=== PATIENT | female | born 1950 | race Caucasian/White ===

== ENCOUNTER 2023-01-03 18:16 | Emergency (ER) | payer MEDICARE, SELFPAY ==
[2023-01-03 18:17] VITALS: BP 180/87; PULSE 101; RESP 18; TEMP 35.6; O2SAT 96
[2023-01-03 19:48] VITALS: BMI 32.9
--- NOTE | 2023-01-03 19:51 | EDS_ITS ---
HPI <RENEA Coates - Last Filed: 01/03/23 21:15> History of Present Illness Chief Complaint: Bite Narrative Narrative: Patient presenting today due to concerns for an infection in her right fourth finger after being bit on accident by her dog 2 days ago. She reports that the finger has become swollen and erythemic. She reports that she has 2 dogs who were fighting and she was trying to break up the fight but got her finger bit in the process. She is unsure of her last tetanus update. Dogs are up-to-date on vaccines. She denies any fever or chills. PFSH <RENEA Coates - Last Filed: 01/03/23 21:15> [facility] Medical History Anxiety Atherosclerotic heart disease of [place] coronary artery without angina pectoris Cardiac murmur Essential hypertension Former smoker GERD (gastroesophageal reflux disease) History of DVT (deep vein thrombosis) History of right above knee amputation Hypertension medical management Mitral valve regurgitation, rheumatic Mixed hyperlipidemia ANIYA (obstructive sleep apnea) Osteoporosis Presence of stent in coronary artery (~08/02/11) Rheumatic aortic regurgitation Rheumatic fever Spinal stenosis Type 2 diabetes mellitus Valvular heart disease Home Medications bupropion HCl 150 mg tablet,12 hr sustained-release 150 mg PO BID 05/14/14 [History Last Taken Unknown] paroxetine HCl 40 mg tablet (Paxil) 50 mg PO DAILY 05/14/14 [History Last Taken Unknown] aspirin 81 mg chewable tablet 81 mg PO DAILY@0800 10/07/15 [History Last Taken Unknown] pantoprazole 20 mg tablet,delayed release 20 mg PO DAILY #30 TABLETS 10/20/15 [Rx Last Taken Unknown] paroxetine HCl 10 mg tablet 10 mg PO DAILY 04/05/21 [History Last Taken Unknown] nitroglycerin 0.4 mg sublingual tablet 0.4 mg sublingual Q5-15M PRN Cardiac/Chest Pain #25 tabs 04/06/21 [Rx Last Taken Unknown] hydrochlorothiazide 12.5 mg tablet 12.5 mg PO DAILY #1 TAB 12/08/21 [Rx Last Taken Unknown] losartan 50 mg tablet 50 mg PO DAILY 12/08/21 [History Last Taken Unknown] amoxicillin 875 mg-potassium clavulanate 125 mg tablet 1 tab PO BID 10 days #19 tabs 01/03/23 [Rx Last Taken Unknown] oxycodone-acetaminophen 5 mg-325 mg tablet (Percocet) 1 tab PO Q8H PRN pain 3 days #10 tabs 01/03/23 [Rx Last Taken Unknown] Allergy/AdvReac Type Severity Reaction Status Date / Time duloxetine HCl Allergy Unknown Verified 01/03/23 18:16 [From Cymbalta] simvastatin [From Zocor] Allergy Unknown Verified 01/03/23 18:16 Yclrugr-[id number]-MbY Reductase Allergy Unknown Verified 01/03/23 18:16 Inhibitor [Qmpaezx-Aky-Ses Reductase Inhibitor] meperidine HCl [From Demerol] AdvReac Unknown Verified 01/03/23 18:16 Family History Father Cancer Brother CAD (coronary artery disease) Brother CAD (coronary artery disease) Diabetes Surgical History H/O hysterectomy with oophorectomy History of bilateral knee replacement History of coronary artery stent placement History of foot surgery History of tonsillectomy and adenoidectomy Presence of coronary angioplasty implant and graft S/P above knee amputation (~01/26/16) Social History Smoking Status: Former smoker alcohol intake: current details: RAre substance use type: does not use caffeine: Yes Type: coffee Number of servings: 2 ROS <RENEA Coates - Last Filed: 01/03/23 21:15> ROS ED Constitutional Constitutional ED: Denies chills or fever(s) Cardiovascular Cardiovascular: Denies chest pain Respiratory/Chest Respiratory/Chest: Denies cough, dyspnea or wheezing Gastrointestinal Gastrointestinal: Denies abdominal pain, nausea or vomiting Musculoskeletal Musculoskeletal: Reports arthralgias; Denies myalgias Integumentary Denies abscess, Abrasions or rash Neurologic Neurologic: Denies weakness EXAM <RENEA Coates - Last Filed: 01/03/23 21:15> Physical Exam Const Vital Signs: 01/03/23 18:17 Temperature 96.0 F L Temperature Source Temporal Pulse Rate 101 H Respiratory Rate 18 Blood Pressure 180/87 H Blood Pressure Mean 118 Pulse Ox 96 Oxygen Delivery Method Room Air Positive well nourished, well developed and no apparent distress General Appearance ED: well developed HEENT Reports normocephalic and head/scalp atraumatic Mouth ED: Yes moist mucous membranes normal Eyes PERRL and EOMs intact bilaterally Neck full ROM and supple Chest Wall inspection of chest normal Resp normal respiratory effort and clear to auscultation bilaterally Cardio regular rate and regular rhythm GI soft to palpation, non-tender, non-distended and no masses Back/Spine normal ROM and normal to inspection Extremity normal to inspection and full ROM Extremity Narrative: Right fourth finger erythema, edema to the PIP with a scabbed puncture wound to the dorsal aspect of the PIP and ventral aspect. Radial pulses 2+ and equal bilaterally, good capillary refill, sensation intact Neuro oriented x3, CN's II-XII intact bilaterally, moves all extremities, no focal motor deficits and no sensory deficits noted Sensorium / Orientation: awake and alert Psych mental status grossly normal and thought process normal Skin no rashes or lesions noted and no wounds <Dr. Pankaj Biggs MD - Last Filed: 01/03/23 21:43> Physical Exam Const Vital Signs: 01/03/23 18:17 Temperature 96.0 F L Temperature Source Temporal Pulse Rate 101 H Respiratory Rate 18 Blood Pressure 180/87 H Blood Pressure Mean 118 Pulse Ox 96 Oxygen Delivery Method Room Air <Dr. Pankaj Biggs MD - Last Filed: 01/03/23 21:43> Procedures Other Procedures Procedure(s): I&D infected dog bite finger as documented by me under the MDM portion of the chart. [facility] <RENEA Coates - Last Filed: 01/03/23 21:15> [facility] Narrative Medical decision making narrative: Patient presenting after being bit by her dog 2 days ago to the right fourth finger. It is erythematous and edematous along the length of the finger and ends at the DIP joint. It does appear to be infected with abscess formation to the dorsal aspect of the DIP joint. X-ray obtained to rule out foreign body, fracture, and is negative for acute findings. Digital block was administered, abscess was drained, wick was placed and wound was dressed. Patient was given pain control here, a dose of Augmentin, and tetanus was updated. She has been given a prescription for Augmentin and Percocet for pain. She has been given strict instructions to follow-up with her PCP in 2 days, if she cannot follow-up with them she is to return. If she notices any worsening of her symptoms such as increased redness into her hand she is to follow-up sooner. She be discharged home in stable condition is comfortable with plan Radiography X-Ray: Read by ED Physician and Read by Radiologist Diagnostic Testing: Clinical Impression(s) from Imaging Studies Hand X-Ray 01/03/23 20:30 IMPRESSION: There is widening of the scapholunate articulation suggesting a sprain of the scapholunate interosseous ligament. Degenerative joint disease of the hand and wrist, as described above. Electronically Signed: Juma Masterson MD at 20:50 EDT , <Dr. Pankaj Biggs MD - Last Filed: 01/03/23 21:43> [facility] MDM Narrative Medical decision making narrative: Patient presenting after being bit by her dog 2 days ago to the right fourth finger. It is erythematous and edematous along the length of the finger and ends at the DIP joint. It does appear to be infected with abscess formation to the dorsal aspect of the DIP joint. X-ray obtained to rule out foreign body, fracture, and is negative for acute findings. Digital block was administered, abscess was drained, wick was placed and wound was dressed. Patient was given pain control here, a dose of Augmentin, and tetanus was updated. She has been given a prescription for Augmentin and Percocet for pain. She has been given strict instructions to follow-up with her PCP in 2 days, if she cannot follow-up with them she is to return. If she notices any worsening of her symptoms such as increased redness into her hand she is to follow-up sooner. She be discharged home in stable condition is comfortable with plan I have personally performed a face to face assessment of the patient and have reviewed the TORITO Note. I performed a substantive portion of the visit including all aspects of the following. My clifford findings include: History is patient was bit by dog 2 days ago. She has a puncture wound on the dorsal surface of the right ring finger distal to the DIP joint and there is a puncture wound noted on the volar surface distal to the DIP joint. Tetanus is not up-to-date. She denies allergy to penicillin. She complains of redness, pain and swelling. She denies history medic fever, heart murmur, SBE and is not immune suppressed. Exam is patient has a swollen digit. There is erythema warmth and fluctuance. There is no lymphangitis. There is no epitrochlear or axillary lymphadenopathy. There is no pain the patient over the flexor tendon in zone 3 of the palm. Sensation is intact. Capillary refill is normal. Patient does not have pain in the joint with passive flexion and extension. Heart is regular. Rate is normal. There is no murmur, gallop or rub. Medical Decision Making patient has infected dog bite. X-ray was obtained to determine if there is any injury to the bone and rule out tooth fragment. Soft tissue swelling is noted. There are degenerative changes noted. Interpretation by radiologist was read however there is no concern for injury to the wrist. Other additions or changes: Patient's digit was anesthetized. Incision was made by me. Purulent material flowed from the incision. Blunt dissection was undertaken. The wound was irrigated with 50 cc of normal saline. A wick was placed using quarter-inch Nu Gauze. Patient received p.o. morphine for her pain. She was discharged with prescription for pain medicine and Augmentin. Radiography Diagnostic Testing: Clinical Impression(s) from Imaging Studies Hand X-Ray 01/03/23 20:30 IMPRESSION: There is widening of the scapholunate articulation suggesting a sprain of the scapholunate interosseous ligament. Degenerative joint disease of the hand and wrist, as described above. Electronically Signed: Juma Masterson MD at 20:50 EDT Reading Location ID and State: [facility] / [place] , Service support , Discharge Plan Triage Chief Complaint: Bite ED Midlevel Provider: Jo Le ED Provider: Pankaj Biggs Dx/Rx/DC Orders Clinical Impression: Infected dog bite of finger, Cellulitis and abscess of finger, unspecified Instructions: Abscess Drainage, ED Dog Bite Prescriptions: New amoxicillin-pot clavulanate 875-125 mg tablet 1 tab PO BID 10 Days Qty: 19 0RF oxycodone-acetaminophen [Percocet] 5-325 mg tablet 1 tab PO Q8H PRN (Reason: pain) 3 Days Qty: 10 0RF No Action nitroglycerin 0.4 mg tablet, sublingual 0.4 mg sublingual Q5-15M PRN (Reason: Cardiac/Chest Pain) Qty: 25 1RF paroxetine HCl 10 mg tablet 10 mg PO DAILY bupropion HCl 150 MG tablet sustained-release 12 hr 150 mg PO BID Label Comments: treat depression paroxetine HCl [Paxil] 40 MG tablet 50 mg PO DAILY Label Comments: Treat major depressive disorders aspirin 81 MG tablet,chewable 81 mg PO DAILY@0800 Label Comments: Heart health pantoprazole 20 MG tablet 20 mg PO DAILY Qty: 30 0RF Label Comments: treat high stomach acid hydrochlorothiazide 12.5 mg tablet 12.5 mg PO DAILY Qty: 1 0RF losartan 50 mg tablet 50 mg PO DAILY Primary Care Provider: Ciro Gomez Referrals: Ciro Gomez DO [Primary Care Provider] - 2 Days Activity Restrictions/Additional Instructions: Please follow-up with your PCP in 2 days, if you cannot follow-up with them please return to the emergency department. If you notice any worsening of symptoms, please follow-up sooner. Disposition Disposition: Home, Self Care
[2023-01-03] MEDS: Diphth,Pertuss(Acell),Tet Vac 0.5 ML Vial IM (20:21)
[2023-01-03] MEDS: Lidocaine 1% (20 ml mdv) 20 ML Vial 10 ML INFILT (20:22)
--- NOTE | 2023-01-03 20:30 | RAD_ITS ---
STUDY: XR Hand Min 3 Views REASON FOR EXAM: Female, 72 years old. dog bite TECHNIQUE: XR Hand 4 Views RIGHT COMPARISON: None. FINDINGS: Normal radiocarpal articulation. There is degenerative arthrosis of the distal radioulnar joint. Normal visualized carpal bones. There is widening of the scapholunate articulation suggesting a sprain of the scapholunate interosseous ligament. There is degenerative arthrosis of the carpometacarpal (CMC) articulation of the thumb. Normal second through fifth carpometacarpal joints. Normal metacarpi. Normal metacarpophalangeal joint of the thumb. Normal interphalangeal joint of the thumb. Normal proximal and distal phalanges of the thumb. There is degenerative arthrosis of the metacarpophalangeal (MCP) joints of the 2nd and 3rd digit. There is diffuse articular joint space narrowing of the proximal and distal interphalangeal joints of the second through fifth fingers, but without erosive changes or periarticular soft tissue swelling. Normal phalanges of the second through fifth fingers. The soft tissue structures are unremarkable. RAD/Hand Min 3 Views IMPRESSION: There is widening of the scapholunate articulation suggesting a sprain of the scapholunate interosseous ligament. Degenerative joint disease of the hand and wrist, as described above. Electronically Signed: Juma Masterson MD at 20:50 EDT Reading Location ID and State: [facility] / [place] , Service support ,
[2023-01-03] MEDS: Acetaminophen 325 MG Tablet 650 MG PO (21:54)
[2023-01-03] MEDS: oxyCODONE 5 MG Tablet PO (21:54)
[2023-01-03] MEDS: Amox/Clavulanate 875 MG Tablet PO (21:55)
[2023-01-03 22:12] VITALS: BP 106/103; PULSE 78; RESP 16; O2SAT 95
== END 2023-01-03 22:22 | disposition home or self-care (01) ==
PROVIDERS: Emergency Provider Emergency Medicine; PCP Student in an Organized Health Care Education/Training Program; Visit Provider Emergency Medicine
DX: L02.511 Cutaneous abscess of right hand (principal); E11.9 Type 2 diabetes mellitus without complications; E78.2 Mixed hyperlipidemia; I25.10 Atherosclerotic heart disease of native coronary artery without angina pectoris; I10 Essential (primary) hypertension; Z87.891 Personal history of nicotine dependence; S61.254D Open bite of right ring finger without damage to nail, subsequent encounter; L03.012 Cellulitis of left finger; W54.0XXD Bitten by dog, subsequent encounter; Z23 Encounter for immunization
CPT/HCPCS: 10060; 73130; 90471; 90715; 99285

== ENCOUNTER 2023-01-05 18:24 | Emergency (ER) | payer MEDICARE, SELFPAY ==
[2023-01-05 18:25] VITALS: BP 185/66; PULSE 105; RESP 18; TEMP 36.4; O2SAT 97
[2023-01-05 18:33] VITALS: BMI 30.9
[2023-01-05] MEDS: Bupivacaine Mpf 0.5% 30 ML VIAL INFILT (18:48)
--- NOTE | 2023-01-05 19:12 | EDS_ITS ---
HPI History of Present Illness Chief Complaint: Wound Check Informant: patient Narrative Narrative: Patient presents for a wound check. She was bit by a dog on Saturday of last week. She presented to the ER on with an abscess over the extensor surface of her right fourth finger at the DIP joint. X-ray at that time was unremarkable. She had an I&D of the abscess performed with packing placed in the wound. She was advised to have the wound rechecked in 2 days. She was unable to see her PCP today so presents to the ER. She is on Augmentin as well as on hydrocodone. [facility] Medical History Anxiety Atherosclerotic heart disease of [place] coronary artery without angina pectoris Cardiac murmur Essential hypertension Former smoker GERD (gastroesophageal reflux disease) History of DVT (deep vein thrombosis) History of right above knee amputation Hypertension medical management Mitral valve regurgitation, rheumatic Mixed hyperlipidemia ANIYA (obstructive sleep apnea) Osteoporosis Presence of stent in coronary artery (~08/02/11) Rheumatic aortic regurgitation Rheumatic fever Spinal stenosis Type 2 diabetes mellitus Valvular heart disease Home Medications bupropion HCl 150 mg tablet,12 hr sustained-release 150 mg PO BID 05/14/14 [History Last Taken Unknown] paroxetine HCl 40 mg tablet (Paxil) 50 mg PO DAILY 05/14/14 [History Last Taken Unknown] aspirin 81 mg chewable tablet 81 mg PO DAILY@0800 10/07/15 [History Last Taken Unknown] pantoprazole 20 mg tablet,delayed release 20 mg PO DAILY #30 TABLETS 10/20/15 [Rx Last Taken Unknown] paroxetine HCl 10 mg tablet 10 mg PO DAILY 04/05/21 [History Last Taken Unknown] nitroglycerin 0.4 mg sublingual tablet 0.4 mg sublingual Q5-15M PRN Cardiac/Chest Pain #25 tabs 04/06/21 [Rx Last Taken Unknown] hydrochlorothiazide 12.5 mg tablet 12.5 mg PO DAILY #1 TAB 12/08/21 [Rx Last Taken Unknown] losartan 50 mg tablet 50 mg PO DAILY 12/08/21 [History Last Taken Unknown] amoxicillin 875 mg-potassium clavulanate 125 mg tablet 1 tab PO BID 10 days #19 tabs 01/03/23 [Rx Last Taken Unknown] oxycodone-acetaminophen 5 mg-325 mg tablet (Percocet) 1 tab PO Q8H PRN pain 3 days #10 tabs 01/03/23 [Rx Last Taken Unknown] Allergy/AdvReac Type Severity Reaction Status Date / Time duloxetine HCl Allergy Unknown Verified 01/03/23 18:16 [From Cymbalta] simvastatin [From Zocor] Allergy Unknown Verified 01/03/23 18:16 Bighxij-WWN-DxC Reductase Allergy Unknown Verified 01/03/23 18:16 Inhibitor [Csrrojt-Eyb-Kmr Reductase Inhibitor] meperidine HCl [From Demerol] AdvReac Unknown Verified 01/03/23 18:16 Family History Father Cancer Brother CAD (coronary artery disease) Brother CAD (coronary artery disease) Diabetes Surgical History H/O hysterectomy with oophorectomy History of bilateral knee replacement History of coronary artery stent placement History of foot surgery History of tonsillectomy and adenoidectomy Presence of coronary angioplasty implant and graft S/P above knee amputation (~01/26/16) Social History Smoking Status: Former smoker alcohol intake: current details: RAre substance use type: does not use caffeine: Yes Type: coffee Number of servings: 2 ROS ROS ED Constitutional Constitutional ED: Denies chills or fever(s) Eyes Eyes: Denies discharge from eye(s) ENT ENT ED: Denies discharge from eye(s) or rhinorrhea Cardiovascular Cardiovascular: Denies chest pain or palpitations Respiratory/Chest Respiratory/Chest: Denies cough or dyspnea Gastrointestinal Gastrointestinal: Denies abdominal pain, nausea or vomiting Genitourinary Genitourinary ED: Denies dysuria Musculoskeletal Musculoskeletal: Reports extremity pain; Denies back pain Integumentary Reports abscess; Denies Abrasions or rash Neurologic Neurologic: Denies headache(s) or weakness Psychiatric Psychiatric: Denies anxiety or depression Allergic/Immunologic Allergic/Immunologic ED: Denies lip swelling or urticaria EXAM Physical Exam Const Vital Signs: 01/05/23 18:25 Temperature 97.5 F L Temperature Source Temporal Pulse Rate 105 H Respiratory Rate 18 Blood Pressure 185/66 H Blood Pressure Mean 105 Pulse Ox 97 Oxygen Delivery Method Room Air Positive well nourished and well developed General Appearance ED: well developed HEENT Reports moist mucous membranes Eyes EOMs intact bilaterally Chest Wall inspection of chest normal and palpation of chest normal Resp normal respiratory effort and clear to auscultation bilaterally Cardio regular rate and regular rhythm GI non-tender Extremity Extremity Narrative: Right upper extremity examination reveals edema and erythema to the right fourth finger. Packing is in place in the wound at this time. Neuro oriented x3 MDM MDM MDM Narrative Medical decision making narrative: Digital block is performed using a 50-50 mix of Marcaine and lidocaine. A total of 7 cc is used in digital block format. After digital block is performed wound is thoroughly cleansed. Packing is removed. Once packing is removed and irrigated wound bed is clean. She does have edema and erythema. There is no lymphangitic streaking. Antibiotic ointment is placed over the wound. Dressing is applied. Patient is instructed on appropriate hand elevation and being sure to continue her antibiotics. She is given return instructions. I advised her I want her to have the wound rechecked again in 2 days, either through her PCP office or at the urgent care/emergency room. She voices understanding and agreement. Discharge Plan Triage Chief Complaint: Wound Check ED Provider: Stormy Sams Dx/Rx/DC Orders Clinical Impression: Dog bite of right hand Instructions: ED Wound Care After Packing ... Prescriptions: No Action nitroglycerin 0.4 mg tablet, sublingual 0.4 mg sublingual Q5-15M PRN (Reason: Cardiac/Chest Pain) Qty: 25 1RF paroxetine HCl 10 mg tablet 10 mg PO DAILY bupropion HCl 150 MG tablet sustained-release 12 hr 150 mg PO BID Label Comments: treat depression paroxetine HCl [Paxil] 40 MG tablet 50 mg PO DAILY Label Comments: Treat major depressive disorders aspirin 81 MG tablet,chewable 81 mg PO DAILY@0800 Label Comments: Heart health pantoprazole 20 MG tablet 20 mg PO DAILY Qty: 30 0RF Label Comments: treat high stomach acid amoxicillin-pot clavulanate 875-125 mg tablet 1 tab PO BID 10 Days Qty: 19 0RF oxycodone-acetaminophen [Percocet] 5-325 mg tablet 1 tab PO Q8H PRN (Reason: pain) 3 Days Qty: 10 0RF hydrochlorothiazide 12.5 mg tablet 12.5 mg PO DAILY Qty: 1 0RF losartan 50 mg tablet 50 mg PO DAILY Primary Care Provider: Ciro Gomez Referrals: Ciro Gomez DO [Primary Care Provider] - 2 Days Disposition Disposition: Home, Self Care
[2023-01-05] MEDS: Lidocaine 1% (20 ml mdv) 20 ML Vial INFILT (19:14)
== END 2023-01-05 19:26 | disposition home or self-care (01) ==
PROVIDERS: Emergency Provider Emergency Medicine; PCP Student in an Organized Health Care Education/Training Program; Visit Provider Emergency Medicine
DX: Z48.00 Encounter for change or removal of nonsurgical wound dressing (principal); E11.9 Type 2 diabetes mellitus without complications; I25.10 Atherosclerotic heart disease of native coronary artery without angina pectoris; I10 Essential (primary) hypertension; E78.2 Mixed hyperlipidemia; Z87.891 Personal history of nicotine dependence; R60.0 Localized edema
CPT/HCPCS: 99283